=== PATIENT | male | born 1945 | race Caucasian/White ===

== ENCOUNTER 2017-01-14 11:00 | Emergency (ER) | payer OTHER, MEDICAID ==
[2017-01-14 11:07] VITALS: RESP 16
[2017-01-14 11:48] LABS: COLOR YELLOW; LEUKOCYTE ESTERASE,URINE 2+ (NEGATIVE); NITRITE,URINE NEGATIVE (NEGATIVE)
--- NOTE | 2017-01-14 11:51 | EDPHY ---
H & P Smoking Status: Never smoked Time Seen by Provider: 01/14/17 11:31 HPI/ROS: CHIEF COMPLAINT: Right hand swelling HISTORY OF PRESENT ILLNESS: This is a 71-year-old male presenting to the emergency department reports being stung by a yellow jacket yesterday around 1900 to right hand. Patient states the swelling to right hand has increased with some redness and tenderness. Patient is also reporting some urinary frequency and urgency, states "feels like my bladder has not completely emptied after pee" Denies any fever chills nausea vomiting REVIEW OF SYSTEMS: Constitutional: No fever, no chills. Eyes: No discharge. No blurred vision ENT: No sore throat. Cardiovascular: No chest pain, no palpitations. Respiratory: No cough, no shortness of breath. Gastrointestinal: No abdominal pain, no vomiting. Genitourinary: No dysuria. Reports urgency and frequency Musculoskeletal: No back pain. Skin: No rashes. Right hand swelling with redness Neurological: No headache. (Charla Perrin) Physical Exam: General Appearance: Alert, no distress. Eyes: PERRLA no pallor or injection. ENT, Mouth: Mucous membranes moist. Respiratory: There are no retractions, lungs are clear to auscultation. Cardiovascular: Regular rate and rhythm. Gastrointestinal: Abdomen is soft and nontender, no masses, bowel sounds normal. Neurological: No focal deficits Skin: Warm and dry, no rashes. Musculoskeletal: Neck is supple nontender. Right hand swelling, erythema and warm to touch. Erythema spreading to forearm. Extremities: symmetrical, full range of motion.Right hand swelling, erythema and warm to touch. Erythema spreading to forearm. Positive CMS intact Psychiatric: Patient is oriented X 3, there is no agitation. (Charla Perrin) Constitutional: Initial Vital Signs Temperature (C) 36.3 C 01/14/17 11:04 Heart Rate 70 01/14/17 11:04 Respiratory Rate 16 01/14/17 11:04 Blood Pressure 124/91 H 01/14/17 11:04 O2 Sat (%) 96 01/14/17 11:04 O2 Delivery Mode Room Air Allergies/Adverse Reactions: No Known Allergies Allergy (Verified 01/14/17 11:02) Home Medications: Medication Instructions Recorded Clindamycin HCl [Clindamycin] 300 mg PO TID #30 cap 01/14/17 Medical Decision Making ED Course/Re-evaluation: Discussed ED plan of care: CBC, CMP, UA, IV, blood cultures 1300: Discussed patient with Dr. Herbert, IV clindamycin patient DC with p.o. clindamycin (Charla Perrin) Differential Diagnosis: Other differential diagnosis considered but not limited to lymphangitis, necrotizing fasciitis and allergic reaction (Charla Perrin) - Data Points Laboratory Results: Laboratory Results 01/14/17 12:06 01/14/17 12:06 01/14/17 01/14/17 01/14/17 12:06 12:06 11:08 WBC 6.29 10^3/uL 10^3/uL (3.80-9.50) RBC 5.16 10^6/uL 10^6/uL (4.40-6.38) Hgb 15.6 g/dL g/dL (13.7-17.5) Hct 47.0 % % (40.0-51.0) MCV 91.1 fL fL (81.5-99.8) MCH 30.2 pg pg (27.9-34.1) MCHC 33.2 g/dL g/dL (32.4-36.7) RDW 13.6 % % (11.5-15.2) Plt Count 164 10^3/uL 10^3/uL (150-400) MPV 11.7 fL fL (8.7-11.7) Neut % (Auto) 62.3 % % (39.3-74.2) Lymph % (Auto) 29.4 % % (15.0-45.0) [place] % (Auto) 7.0 % % (4.5-13.0) Eos % (Auto) 0.6 % % (0.6-7.6) Baso % (Auto) 0.5 % % (0.3-1.7) Nucleat RBC Rel Count 0.0 % % (0.0-0.2) Absolute Neuts (auto) 3.92 10^3/uL 10^3/uL (1.70-6.50) Absolute Lymphs (auto) 1.85 10^3/uL 10^3/uL (1.00-3.00) Absolute Monos (auto) 0.44 10^3/uL 10^3/uL (0.30-0.80) Absolute Eos (auto) 0.04 10^3/uL 10^3/uL (0.03-0.40) Absolute Basos (auto) 0.03 10^3/uL 10^3/uL (0.02-0.10) Absolute Nucleated RBC 0.00 10^3/uL 10^3/uL (0-0.01) Immature Gran % 0.2 % % (0.0-1.1) Immature Gran # 0.01 10^3/uL 10^3/uL (0.00-0.10) Sodium 141 mEq/L mEq/L (134-144) Potassium 4.7 mEq/L mEq/L (3.5-5.2) Chloride 108 mEq/L mEq/L (97-110) Carbon Dioxide 23 mEq/l mEq/l (22-31) Anion Gap 10 mEq/L mEq/L (8-16) BUN 18 mg/dL mg/dL (7-23) Creatinine 0.9 mg/dL mg/dL (0.7-1.3) Estimated GFR > 60 Glucose 80 mg/dL mg/dL (70-100) Calcium 9.4 mg/dL mg/dL (8.5-10.4) Urine Color YELLOW Urine Appearance HAZY Urine pH 5.0 (5.0-7.5) Ur Specific [place] 1.014 (1.002-1.030) Urine Protein NEGATIVE (NEGATIVE) Urine Ketones NEGATIVE (NEGATIVE) Urine Blood NEGATIVE (NEGATIVE) Urine Nitrate NEGATIVE (NEGATIVE) Urine Bilirubin NEGATIVE (NEGATIVE) Urine Urobilinogen NEGATIVE EU EU (0.2-1.0) Ur Leukocyte Esterase 2+ H (NEGATIVE) Urine RBC 15-25 /hpf H /hpf (0-3) Urine WBC 50-182 /hpf H /hpf (0-3) Ur Epithelial Cells TRACE /lpf /lpf (NONE-1+) Urine Bacteria TRACE /hpf H /hpf (NONE SEEN) Urine Mucus TRACE /lpf /lpf (NONE-1+) Urine Glucose NEGATIVE (NEGATIVE) Medications Given: Discontinued Medications Diphenhydramine HCl (Benadryl Injection) 25 mg IVP EDNOW ONE Stop: 01/14/17 13:15 Last Admin: 01/14/17 13:30 Dose: 25 mg Clindamycin Phosphate/Dextrose (Cleocin 600 Mg (Premix)) 50 mls @ 100 mls/hr IV EDNOW ONE PRN Reason: Protocol Stop: 01/14/17 13:44 Last Admin: 01/14/17 13:40 Dose: 50 mls Methylprednisolone Sodium Succinate (Solu-Medrol) 125 mg IVP EDNOW ONE Stop: 01/14/17 13:15 Last Admin: 01/14/17 13:30 Dose: 125 mg Departure - Departure Disposition: Home, Routine, Self-Care Clinical Impression: Cellulitis Qualifiers: Site of cellulitis: extremity Site of cellulitis of extremity: upper extremity Laterality: right Qualified Code(s): L03.113 - Cellulitis of right upper limb Allergic reaction Qualifiers: Encounter type: initial encounter Qualified Code(s): T78.40XA - Allergy, unspecified, initial encounter Condition: Good Instructions: Cellulitis (ED) Additional Instructions: Discussed discharge instructions 1. You may given a dose of IV antibiotics here in the ED 2. Take additional antibiotics as prescribed. He can also continue taking Benadryl 25-50 mg every 6-8 hours 3. Follow up with primary care physician this week. I have drawn a line around the area of redness and swelling of your right hand please monitor for any worsening of swelling and redness if this should occur please return to the ER Referrals: NONE *PRIMARY CARE P,. [Primary Care Provider] - As per Instructions [facility],. [Clinic] - As per Instructions Prescriptions: Clindamycin HCl [Clindamycin] 300 mg PO TID #30 cap
[2017-01-14 11:58] LABS: BACTERIA TRACE /hpf (NONE SEEN); MUCUS TRACE /lpf (NONE-1+); RBC,URINE 15-25 /hpf (0-3); WBC,URINE 50-182 /hpf (0-3)
[2017-01-14 12:15] LABS: % IMMATURE GRANULYOCYTES 0.2 % (0.0-1.1); ABSOLUTE IMMATURE GRANULOCYTES 0.01 10^3/uL (0.00-0.10); ADD DIFF? NO; ADD MORPH? NO; ADD SCAN? NO; ATYPICAL LYMPHOCYTE FLAG 10 (0-99); FRAGMENT RBC FLAG 0 (0-99); HEMOGLOBIN 15.6 g/dL (13.7-17.5); LEFT SHIFT FLG 0 (0-99); LIPEMIA HEMOLYSIS FLAG 80 (0-99); MEAN CELL HEMOGLOBIN 30.2 pg (27.9-34.1); MEAN CELL HEMOGLOBIN CONCENTR. 33.2 g/dL (32.4-36.7); MEAN CELL VOLUME 91.1 fL (81.5-99.8); MEAN PLATELET VOLUME 11.7 fL (8.7-11.7); PLATELET CLUMPS FLAG 0 (0-99); PLATELET COUNT 164 10^3/uL (150-400); RED BLOOD CELL COUNT 5.16 10^6/uL (4.40-6.38); RED CELL DISTRIBUTION WIDTH 13.6 % (11.5-15.2)
[2017-01-14 12:34] LABS: ANION GAP 10 mEq/L (8-16); CALCIUM 9.4 mg/dL (8.5-10.4); CARBON DIOXIDE 23 mEq/l (22-31); CHLORIDE 108 mEq/L (97-110); CREATININE 0.9 mg/dL (0.7-1.3); GLOMERULAR FILTRATION RATE > 60; GLUCOSE 80 mg/dL (70-100); POTASSIUM 4.7 mEq/L (3.5-5.2); SODIUM 141 mEq/L (134-144)
[2017-01-14] MEDS ORDERED: methylPREDNISolone SOD SUCC 125 MG/2 ML VIAL IVP ONE (13:14)
[2017-01-14] MEDS ORDERED: CLINDAMYCIN 600 MG/DEXTROSE 50 ML IV ONE (13:15)
[2017-01-14 14:47] VITALS: BP 142/95; PULSE 68; TEMP 97.7; O2SAT 98
== END 2017-01-14 14:47 | disposition home or self-care (01) ==
DX: L03.113 Cellulitis of right upper limb (principal); T78.40XA Allergy, unspecified, initial encounter
CPT/HCPCS: 96365; 96375; 99284; J1200

== ENCOUNTER 2017-01-26 04:56 | Emergency (ER) | payer OTHER, MEDICAID ==
[2017-01-26 05:03] VITALS: BP 155/108; PULSE 87; RESP 16; TEMP 98.4; O2SAT 95
--- NOTE | 2017-01-26 05:30 | EDPHY ---
H & P Stated Complaint: difficulty with urination, URI symptoms Time Seen by Provider: 01/26/17 05:05 HPI/ROS: Chief Complaint: Difficulty urinating, URI symptoms, left eye irritation HPI: 71-year-old male no past medical history presenting complaining of burning with urination the last 2 weeks, upper respiratory symptoms and today developed swelling and discharge from his left eye. Patient was seen here 10 days ago after a bee sting and a cellulitis on his right hand. Patient was started on clindamycin. Patient states that this has improved significantly but he is continuing to have urinary symptoms. Patient has had persistent upper respiratory symptoms with a mild headache but has developed increasing eye irritation yesterday noticed significant eye discharge and eyelid swelling yesterday over the course of the day. Some chills, no fevers. No nausea or vomiting. No chest pain or shortness of breath. No skin rashes. ROS: 10 point Review of Systems is negative except as noted in the HPI. PMH: None Medications: None Allergies: No known drug allergies Social History: smoking, occasional alcohol, Family History: non-contributory Physical Exam: Gen: Awake, Alert, No Distress HEENT: Nose: no rhinorrhea Eyes: PERRLA, EOMI, left upper eyelid is swollen and there is purulent discharge with matting. Anterior chamber is clear. Mouth: Moist mucosa Neck: Supple, no JVD Chest: nontender, lungs clear to auscultation Heart: S1, S2 normal, no murmur Abd: Soft, non-tender, no guarding Back: no CVA tenderness, no midline tenderness Ext: no edema, non-tender Skin: no rash Neuro: CN II-XII intact, Sensation grossly intact, Strength 5/5 in bilateral upper and lower extremities - Personal History Current Tetanus/Diphtheria Vaccine: Yes Current Tetanus Diphtheria and Acellular Pertussis (TDAP): Yes Tetanus Vaccine Date: 2015 - Medical/Surgical History Hx Asthma: No Hx Chronic Respiratory Disease: No Hx Diabetes: No Hx Cardiac Disease: No Hx Renal Disease: No Hx Cirrhosis: No Hx Alcoholism: No Hx HIV/AIDS: No Hx Splenectomy or Spleen Trauma: No Other PMH: PMH:DVT/PE - Social History Smoking Status: Never smoked Constitutional: Initial Vital Signs Temperature (C) 36.9 C 01/26/17 04:58 Heart Rate 87 01/26/17 04:58 Respiratory Rate 16 01/26/17 04:58 Blood Pressure 155/108 H 01/26/17 04:58 O2 Sat (%) 95 01/26/17 04:58 O2 Delivery Mode Room Air Allergies/Adverse Reactions: No Known Allergies Allergy (Verified 01/14/17 11:02) Home Medications: Medication Instructions Recorded Clindamycin HCl [Clindamycin] 300 mg PO TID #30 cap 01/14/17 Medical Decision Making ED Course/Re-evaluation: Patient with certain conjunctivitis and dysuria. Urinalysis is negative for urinary tract infection. He is finishing his course of clindamycin for his cellulitis. His arm is well healed. I will discharge him with instructions to follow up with primary care physician. He should also for probably need referral to urologist for possible symptoms of BPH. Patient will return for any worsening of symptoms. - Data Points Laboratory Results: 01/26/17 05:07 Urine Color PALE YELLOW Urine Appearance CLEAR Urine pH 6.0 (5.0-7.5) Ur Specific [place] 1.003 (1.002-1.030) Urine Protein NEGATIVE (NEGATIVE) Urine Ketones NEGATIVE (NEGATIVE) Urine Blood NEGATIVE (NEGATIVE) Urine Nitrate NEGATIVE (NEGATIVE) Urine Bilirubin NEGATIVE (NEGATIVE) Urine Urobilinogen NEGATIVE EU EU (0.2-1.0) Ur Leukocyte Esterase NEGATIVE (NEGATIVE) Urine RBC 1-3 /hpf /hpf (0-3) Urine WBC NONE SEEN /hpf /hpf (0-3) Ur Epithelial Cells NONE SEEN /lpf /lpf (NONE-1+) Urine Glucose NEGATIVE (NEGATIVE) Medications Given: Discontinued Medications Ciprofloxacin (Ciloxan 0.3% Opht Drops Prepack) [facility] Stop: 01/26/17 05:33 Last Admin: 01/26/17 05:43 Dose: 1 btl Departure - Departure Disposition: Home, Routine, Self-Care Clinical Impression: Conjunctivitis, Upper respiratory infection, Dysuria Condition: Good Instructions: Ciprofloxacin (Into the eye), Upper Respiratory Infection (ED), Dysuria (ED), Conjunctivitis (ED) Additional Instructions: Apply 1 drop of ciprofloxacin solution into her left eye every 4 hours while awake for 7 days Follow up with primary care physician in 2-3 days for re-evaluation. Referrals: Rigo Infante, [Medical Doctor] - As per Instructions
[2017-01-26] MEDS ORDERED: CIPROFLOXACIN 0.3% DROPS PREPACK OPHT.BTL TAKEHOME ONE (05:32)
[2017-01-26 05:34] LABS: COLOR PALE YELLOW; LEUKOCYTE ESTERASE,URINE NEGATIVE (NEGATIVE); NITRITE,URINE NEGATIVE (NEGATIVE)
[2017-01-26 05:37] LABS: WBC,URINE NONE SEEN /hpf (0-3)
== END 2017-01-26 05:54 | disposition home or self-care (01) ==
DX: H10.9 Unspecified conjunctivitis (principal); J06.9 Acute upper respiratory infection, unspecified; R30.0 Dysuria

== ENCOUNTER 2017-02-02 16:23 | Emergency (ER) | payer OTHER, MEDICAID ==
[2017-02-02] MEDS ORDERED: ADENOSINE 6 MG/2 ML VIAL ONE (16:34)
--- NOTE | 2017-02-02 16:35 | CPEKG ---
Heart Rate: 193 RR Interval: 311 QRSD Interval: 70 QT Interval: 260 QTC Interval: 466 P [place]: 0 QRS [place]: 1 T Wave [place]: 72 EKG Severity - ABNORMAL ECG - EKG Impression: SUPRAVENTRICULAR TACHYCARDIA EKG Impression: LOW VOLTAGE IN FRONTAL LEADS EKG Impression: ST DEPRESSION, PROBABLY RATE RELATED Electronically Signed By: Tristin May 02-Feb-2017 16:44:13
[2017-02-02] MEDS ORDERED: ADENOSINE 6 MG/2 ML VIAL IVP ONE (16:39)
--- NOTE | 2017-02-02 16:43 | EDPHY ---
H & P Time Seen by Provider: 02/02/17 16:30 HPI/ROS: CHIEF COMPLAINT: Fast heart rate HISTORY OF PRESENT ILLNESS: Patient was seen by myself on 05/06/2016 for SVT. He has a history of DVT about 4 years ago. He felt relatively well today and was in [employer] got a gal of pain was going to go home and pain discrete house when he started feeling very rapid heart rate about an hour prior to arrival. He felt lightheaded and dizzy and ate some chocolate but that did not help. Symptoms severe on arrival with dizziness. No chest pain or shortness of breath. No leg swelling. REVIEW OF SYSTEMS: Eye: no change in vision ENT: no sore throat Cardiac: no chest pain or syncope Pulmonary: no cough or SOB Abdomen: no vomiting, diarrhea, abdominal pain Musculoskeletal: no back pain Skin: no rash Neuro: no headache Constitutional: no fever : no urinary symptoms A comprehensive 10 point review of systems is otherwise negative aside from elements mentioned in the history of present illness. PAST MEDICAL HISTORY: SVT, DVT. Social history: Here with his partner. Nonsmoker. General Appearance: Alert and conversant, cooperative. Eyes: No scleral icterus. ENT, Mouth: Normal mucous membranes. Respiratory: Normal respiratory effort, breath sounds equal, lungs are clear to auscultation. Cardiovascular: Regular rate and rhythm. Tachycardic. Gastrointestinal: Abdomen is soft and non tender. Neurological: Alert and oriented x3. Normally conversant. Face symmetric, normal movement and sensation in all extremities. Skin: Warm and dry, no rashes. Musculoskeletal: No peripheral edema and no joint swelling. Left ankle bracelet. Psychiatric: Not agitated. Emergency Department course/MDM: Initial EKG shows SVT at a rate of 193 with hypotension. He was emergently cardioverted with adenosine successfully because of hypotension, blood pressure 78/64. D-dimer ordered, resulted high. CTPA discussed and consented. 1829: Negative CT PA per Dr. Jaramillo Results discussed, encouraged cardiology follow-up as an outpatient with 2nd episode. Smoking Status: Never smoked Constitutional: Initial Vital Signs Temperature (C) 36.5 C 02/02/17 16:25 Heart Rate 207 H 02/02/17 16:25 Respiratory Rate 20 02/02/17 16:25 Blood Pressure 78/64 L 02/02/17 16:25 O2 Sat (%) 97 02/02/17 16:25 O2 Delivery Mode Nasal Cannula O2 (L/minute) 2 Allergies/Adverse Reactions: No Known Allergies Allergy (Verified 02/02/17 16:24) Home Medications: Medication Instructions Recorded NK [No Known Home Meds] 02/02/17 Medical Decision Making - Diagnostics EKG Interpretation: EKG 1.:12-lead EKG interpreted by me; official reading is in trace master. My interpretation is supraventricular tachycardia rate of 193 with rate-related ST changes. EKG 2:12-lead EKG interpreted by me; official reading is in trace master. My interpretation is sinus rhythm with low frontal lead voltage rate 97 but no ischemic changes. Differential Diagnosis: Differential diagnosis considered for narrow complex tachycardia including but not limited to various causes of sinus tachycardia, SVT, atrial flutter and atrial fibrillation. Critical Care Time: Critical care time spent by me, Dr. May, exclusively with the care of this patient was 30 minutes, exclusive of PA or OUTSIDE RESIDENTIAL SALES PROFESSIONAL time and exclusive of separate procedures. The organ system at risk was cardiovascular and I ordered multiple diagnostic studies including multiple EKGs and lab tests, intravenous adenosine for tachycardia and hypotension to stabilize the patient and prevent worsening of the patient's condition. - Data Points Laboratory Results: Laboratory Results 02/02/17 16:38 02/02/17 16:38 02/02/17 02/02/17 02/02/17 16:38 16:38 16:38 WBC 7.49 10^3/uL 10^3/uL (3.80-9.50) RBC 5.26 10^6/uL 10^6/uL (4.40-6.38) Hgb 16.2 g/dL g/dL (13.7-17.5) Hct 48.4 % % (40.0-51.0) MCV 92.0 fL fL (81.5-99.8) MCH 30.8 pg pg (27.9-34.1) MCHC 33.5 g/dL g/dL (32.4-36.7) RDW 13.2 % % (11.5-15.2) Plt Count 239 10^3/uL 10^3/uL (150-400) MPV 10.6 fL fL (8.7-11.7) Neut % (Auto) 49.7 % % (39.3-74.2) Lymph % (Auto) 37.4 % % (15.0-45.0) [place] % (Auto) 8.7 % % (4.5-13.0) Eos % (Auto) 2.7 % % (0.6-7.6) Baso % (Auto) 1.2 % % (0.3-1.7) Nucleat RBC Rel Count 0.0 % % (0.0-0.2) Absolute Neuts (auto) 3.73 10^3/uL 10^3/uL (1.70-6.50) Absolute Lymphs (auto) 2.80 10^3/uL 10^3/uL (1.00-3.00) Absolute Monos (auto) 0.65 10^3/uL 10^3/uL (0.30-0.80) Absolute Eos (auto) 0.20 10^3/uL 10^3/uL (0.03-0.40) Absolute Basos (auto) 0.09 10^3/uL 10^3/uL (0.02-0.10) Absolute Nucleated RBC 0.00 10^3/uL 10^3/uL (0-0.01) Immature Gran % 0.3 % % (0.0-1.1) Immature Gran # 0.02 10^3/uL 10^3/uL (0.00-0.10) D-Dimer 0.85 ug/mLFEU H ug/mLFEU (0.00-0.50) Sodium 138 mEq/L mEq/L (134-144) Potassium 4.8 mEq/L mEq/L (3.5-5.2) Chloride 101 mEq/L mEq/L (97-110) Carbon Dioxide 25 mEq/l mEq/l (22-31) Anion Gap 12 mEq/L mEq/L (8-16) BUN 16 mg/dL mg/dL (7-23) Creatinine 1.2 mg/dL mg/dL (0.7-1.3) Estimated GFR 60 Glucose 97 mg/dL mg/dL (70-100) Calcium 9.5 mg/dL mg/dL (8.5-10.4) Medications Given: Discontinued Medications Adenosine (Adenosine) 6 mg IVP EDNOW ONE Stop: 02/02/17 16:40 Last Admin: 02/02/17 16:44 Dose: 6 mg Departure - Departure Disposition: Home, Routine, Self-Care Clinical Impression: Supraventricular tachycardia Condition: Good Instructions: Supraventricular Tachycardia (ED) Referrals: Robin Jasso MD [Medical Doctor] - As per Instructions Ihsan Keen MD [Medical Doctor] - As per Instructions (Please consider following up at [facility] for 2nd episode of SVT. Normal CT without evidence of blood clot in your lung.)
--- NOTE | 2017-02-02 16:43 | CPEKG ---
Heart Rate: 97 RR Interval: 619 P-R Interval: 164 QRSD Interval: 68 QT Interval: 324 QTC Interval: 412 P [place]: 62 QRS [place]: 21 T Wave [place]: 55 EKG Severity - OTHERWISE NORMAL ECG - EKG Impression: SINUS RHYTHM EKG Impression: LOW VOLTAGE IN FRONTAL LEADS Electronically Signed By: Tristin May 02-Feb-2017 16:44:05
[2017-02-02 16:46] LABS: % IMMATURE GRANULYOCYTES 0.3 % (0.0-1.1); ABSOLUTE IMMATURE GRANULOCYTES 0.02 10^3/uL (0.00-0.10); ADD DIFF? NO; ADD MORPH? NO; ADD SCAN? NO; ATYPICAL LYMPHOCYTE FLAG 40 (0-99); FRAGMENT RBC FLAG 0 (0-99); HEMATOCRIT 48.4 % (40.0-51.0); HEMOGLOBIN 16.2 g/dL (13.7-17.5); LEFT SHIFT FLG 0 (0-99); LIPEMIA HEMOLYSIS FLAG 80 (0-99); MEAN CELL HEMOGLOBIN 30.8 pg (27.9-34.1); MEAN CELL HEMOGLOBIN CONCENTR. 33.5 g/dL (32.4-36.7); MEAN PLATELET VOLUME 10.6 fL (8.7-11.7); PLATELET CLUMPS FLAG 0 (0-99); PLATELET COUNT 239 10^3/uL (150-400); RED BLOOD CELL COUNT 5.26 10^6/uL (4.40-6.38); RED CELL DISTRIBUTION WIDTH 13.2 % (11.5-15.2)
[2017-02-02 16:50] VITALS: RESP 18
[2017-02-02 17:02] LABS: ANION GAP 12 mEq/L (8-16); CALCIUM 9.5 mg/dL (8.5-10.4); CARBON DIOXIDE 25 mEq/l (22-31); CHLORIDE 101 mEq/L (97-110); CREATININE 1.2 mg/dL (0.7-1.3); GLOMERULAR FILTRATION RATE 60; GLUCOSE 97 mg/dL (70-100); POTASSIUM 4.8 mEq/L (3.5-5.2); SODIUM 138 mEq/L (134-144)
[2017-02-02] MEDS ORDERED: IOPAMIDOL (ISOVUE 370) 100 ML BTL IV ONE (17:36)
[2017-02-02 18:37] VITALS: BP 102/81; PULSE 79; TEMP 98.2; O2SAT 100
== END 2017-02-02 18:37 | disposition home or self-care (01) ==
DX: I47.1 Supraventricular tachycardia (principal)
CPT/HCPCS: 71275; 93005; 96374; 99291; J0153; Q9967

== ENCOUNTER 2018-07-27 12:00 | Emergency (ER) | payer OTHER, MEDICAID ==
--- NOTE | 2018-07-27 13:56 | EDPHY ---
H & P Stated Complaint: r dvt dx 06/26 2 weeks xarelto then never fu/now increasing r leg swelling Time Seen by Provider: 07/27/18 13:43 - Personal History Current Tetanus Diphtheria and Acellular Pertussis (TDAP): Yes Tetanus Vaccine Date: 2015 - Medical/Surgical History Hx Asthma: No Hx Chronic Respiratory Disease: No Hx Diabetes: No Hx Cardiac Disease: Yes Hx Renal Disease: No Hx Cirrhosis: No Hx Alcoholism: No Hx HIV/AIDS: No Hx Splenectomy or Spleen Trauma: No Other PMH: PMH:DVT/PE, tachycardia/ atrial fib - Social History Smoking Status: Never smoked Constitutional: Initial Vital Signs Temperature (C) 36.4 C 07/27/18 12:07 Heart Rate 65 07/27/18 12:07 Respiratory Rate 18 07/27/18 12:07 Blood Pressure 132/99 H 07/27/18 12:07 O2 Sat (%) 97 07/27/18 12:07 O2 Delivery Mode Room Air Allergies/Adverse Reactions: No Known Allergies Allergy (Verified 07/27/18 12:05) Home Medications: Medication Instructions Recorded Rivaroxaban [Xarelto 15mg (*)] 15 mg PO BID #42 tab 07/27/18 Rivaroxaban [Xarelto] 20 mg PO DAILY #67 tab 07/27/18 Medical Decision Making - Diagnostics Imaging Results: Imaging Impressions Extremity Venous Study 07/27/18 12:13 Impression: New extensive deep venous thrombosis involving the right external iliac, common femoral, femoral, and popliteal veins. No extension into the common iliac vein or IVC. Findings discussed with Emergency Department physician, Dr. Aaron Hill on July 27, 2018 at 1345 hours. Imaging: Discussed imaging studies w/ elementary school social worker Radiologist ED Course/Re-evaluation: CHIEF COMPLAINT: Increasing right leg swelling, known DVT HISTORY OF PRESENT ILLNESS: The patient is a 72 y/o male with a history of prior DVT who arrives with his complaining of worsening swelling of his right leg following diagnosis of a new DVT last month. He was prescribed 15mg QD Xarelto, but ran out after 10 days and did not follow up with another doctor to get a longer prescription. He has been off Xarelto now for at least 10 days. In the last two days he developed worsening right leg swelling and pain and his prompted him to come to the ED today for reevaluation. No chest pain, dyspnea, fever, weakness, paresthesias, or other complaints. REVIEW OF SYSTEMS: A 10 point review of systems was performed and is negative with the exception of the elements mentioned in the history of present illness. PHYSICAL EXAM: HR, BP, O2 Sat, RR. Temp noted General Appearance: Alert, well hydrated, appropriate, and non-toxic appearing. Head: Atraumatic without scalp tenderness or obvious injury Eyes: Pupils equal, round, reactive to light and accommodation, EOMI, no trauma , no injection. Nose: Atraumatic, no rhinorrhea, clear. Throat: Mucus membranes moist. Neck: Supple, non-tender, no lymphadenopathy. Respiratory: No retractions, no distress, no wheezes, and no accessory muscle use. Lungs are clear to auscultation bilaterally. Cardiovascular: Regular rate and rhythm, no murmurs, rubs, or gallops. Good capillary refill all extremities. Gastrointestinal: Abdomen is soft, non-tender, non-distended, no masses, no rebound, no guarding, no peritoneal signs. Musculoskeletal: Right leg swelling. Normal active ROM of all extremities, atraumatic. Neurological: Alert, appropriate, and interactive. The patient has non-focal cranial nerves, motor, sensory, and cerebellar exam. Skin: No rashes, good turgor, no nodules on palpation. PAST MEDICAL HISTORY: DVT, PE, atrial fibrillation PAST SURGICAL HISTORY: Noncontributory SOCIAL HISTORY: at bedside. Lives in [place]. Retired. DIAGNOSTICS/PROCEDURES/CRITICAL CARE TIME: Right leg US: extensive deep venous thrombosis involving the right external iliac, common femoral, femoral, and popliteal veins. DIFFERENTIAL DIAGNOSIS: The differential diagnosis for the patient's leg swelling included but was not limited to hypoalbuminemia, congestive heart failure, cor pulmonale, venous stasis, trauma, and DVT. MEDICAL DECISION MAKING: This is a 72 y/o male who was diagnosed with a right lower extremity DVT last month, but failed to completed a full course of Xarelto and right leg swelling has worsened again over the last two days. Right leg US shows an extensive DVT involving his external iliac, femoral, and popliteal veins. Discussed results with patient and recommended discharge on 3-month course of Xarelto and hematology follow up as this is now his second extensive clot. He is comfortable with this plan. Return precautions discussed. Departure - Departure Disposition: Home, Routine, Self-Care Clinical Impression: Deep venous thrombosis Qualifiers: DVT location: lower extremity Affected thrombotic vein of extremity: iliac Chronicity: acute Laterality: right Qualified Code(s): I82.421 - Acute embolism and thrombosis of right iliac vein Condition: Good Instructions: Rivaroxaban (By mouth), Deep Vein Thrombosis (ED) Additional Instructions: 1. Take 15mg Xarelto twice daily for the next 21 days. 2. After 21 days, take 20mg of Xarelto daily the next 67 days (3 months total on Xarelto). You will likely indefinitely need to remain on a blood thinner since this is your 2nd blood clot. 3. Follow up with Dr. Leon, production machine shop supervisor, in the next week for further evaluation without fail. 4. Return to the ED for severe pain, worsening swelling, chest pain, shortness of breath, or other worsening of condition. Referrals: TATO READ [Other] - As per Instructions Oscar Leon MD [Medical Doctor] - As per Instructions Prescriptions: Rivaroxaban [Xarelto 15mg (*)] 15 mg PO BID #42 tab Rivaroxaban [Xarelto] 20 mg PO DAILY #67 tab Report Scribed for: Aaron Hill Report Scribed by: Cally Figueroa Date of Report: 07/27/18 Time of Report: 14:19
[2018-07-27 14:07] VITALS: BP 131/78
== END 2018-07-27 14:07 | disposition home or self-care (01) ==
DX: I82.421 Acute embolism and thrombosis of right iliac vein (principal); Z79.01 Long term (current) use of anticoagulants